=== PATIENT | female | born 1980 | race African-American/Black ===

== ENCOUNTER → 2017-10-29 | Outpatient (CLI) | payer SELFPAY ==
[2015-03-01 06:20] VITALS: BP 124/60
[~2017-10-29] MED LIST: ADDERALL PO; ADDERALL XR30 MG PO; CIPRO 250MG TA250 MG PO; IRON325 M1 PO; LORTAB 10/500 51 TAB PO; MULTIPLE VITAM1 EACH PO; PRILOSEC 20MG20 MG PO; SLOW RELEASE IR50 MG PO; VYVANSE30 MG PO
[2017-10-29 17:08] LABS: EOS # 0.2 (0.04-0.40); EOS % 3.3 % (1.0-5.0); HEMATOCRIT 30.7 % (37.0-47.0); HEMOGLOBIN 8.6 g/dL (12.5-16.0); LYMPH# 1.8 (1.50-4.00); MEAN PLATELET VOLUME 8.4 fl (7.4-10.4); MONO # 0.5 (0.20-0.80); NEU # 4.3 (1.40-6.50); PLATELET COUNT 367 K/mm3 (130-400); RED BLOOD COUNT 4.91 M/mm3 (4.10-5.30); WHITE BLOOD COUNT 6.9 K/mm3 (4.8-10.8)
[2017-10-29 17:36] LABS: MEAN CELL VOLUME 63 fl (78-100); MEAN CORPUSCULAR HEMOGLOBIN 18 pg (27-31); MEAN CORPUSCULAR HGB CONC 28 g/dL (33-37); RED CELL DISTRIBUTION WIDTH 20.4 % (11.5-14.5)
== END ==
LOC: LAB 16:51
PROVIDERS: Nurse Practitioner Family
DX: F50.89 Other specified eating disorder (principal)